=== PATIENT | female | born 1950 | race Caucasian/White ===

== ENCOUNTER 2017-12-19 14:03 | Outpatient (CLI) | payer MEDICARE, OTHER | END 2017-12-19 14:04 | disposition home or self-care (01) | LOC: BICRAD 14:03 | PROVIDERS: ATTEND Family Medicine | DX: M25.551 Pain in right hip (principal); M25.552 Pain in left hip ==

== ENCOUNTER 2018-05-05 23:41 | Inpatient (IN) | payer MEDICARE, OTHER ==
[~2018-05-05 23:41] MED LIST: ISOVUE-370 76%-LOCM 1 ML ONE
[2018-05-06 00:29] LABS: #Lymphocytes 0.4 thou/uL (1.20-3.40); #Monocytes 0.3 thou/uL (0.11-0.59); #Neutrophils 8.7 thou/uL (1.40-6.50); %Basophils 0.1 % (0.0-1.0); %Eosinophils 0.4 % (0.0-10.0); %Lymphocytes 3.8 % (21.0-51.0); %Monocytes 2.9 % (0.0-10.0); %Neutrophils 92.8 % (42.0-75.0); Hemoglobin 12.4 g/dL (12.0-16.0); Mean Corpuscular HGB CONC 33.3 g/dL (32.0-36.0); Mean Corpuscular Hemoglobin 30.6 pg (27.0-31.0); Mean Corpuscular Volume 91.7 fL (78.0-98.0); Platelet Count 368 thou/uL (130-400); RBC Distribution Width 11.8 % (11.5-14.5); Red Blood Cell (RBC) Count 4.06 mill/uL (4.20-5.40); White Blood Cell (WBC) Count 9.4 thou/uL (4.8-10.8)
[2018-05-06 00:51] LABS: ALT (SGPT) 46 U/L (8-55); AST (SGOT) 41 U/L (5-34); Albumin 3.9 g/dL (3.4-4.8); Alkaline Phosphatase 108 U/L (40-150); Anion Gap 13 mmol/L (10-20); BUN (Urea Nitrogen) 25 mg/dL (9.8-20.1); Bilirubin, Total 0.4 mg/dL (0.2-1.2); CK (CPK) 43 U/L (29-168); Calc. Creatinine Clearance 0 mL/min (70-130); Calcium 9.1 mg/dL (7.8-10.44); Carbon Dioxide 26 mmol/L (23-31); Chloride 101 mmol/L (98-107); Estimated GFR-MDRD 55; Glucose 144 mg/dL (80-115); Potassium 3.9 mmol/L (3.5-5.1); Protein, Total 6.9 g/dL (6.0-8.3); Sodium 136 mmol/L (136-145)
[2018-05-06 00:54] LABS: CKMB 0.7 ng/mL (0-6.6); Troponin I Less than 0.010 ng/mL (< 0.028)
[2018-05-06 01:30] LABS: Bilirubin Negative (Negative); Blood, Urine Negative (Negative); Clarity CLEAR (Clear); Glucose, Urine (Dipstick) Negative (Negative); Leukocyte Negative (Negative); Nitrite Negative (Negative); Protein, Urine (Dipstick) Negative (Neg-Trace); Urobilinogen 0.2 mg/dL (0.2-1.0)
[2018-05-06 01:34] LABS: Specific Gravity, Urine 1.059 (1.002-1.036)
[2018-05-06] MEDS ORDERED: Aspirin 325 MG TAB PO SCH (02:30)
[2018-05-06] MEDS ORDERED: Ondansetron HCl/PF 4 MG/2 ML Vial IVP PRN (02:36)
[2018-05-06] MEDS ORDERED: Ondansetron ODT 4 MG TAB SL PRN (02:36)
[2018-05-06] MEDS: Sodium Chloride 0.9% 1,000 ML IV SCH ×3 (02:40→20:10)
[2018-05-06 03:17] VITALS: BMI 26.6
[2018-05-06 03:51] LABS: Troponin I 0.015 ng/mL (< 0.028)
[2018-05-06] MEDS ORDERED: Acetaminophen 500 MG TAB PO PRN (04:17)
[2018-05-06] MEDS ORDERED: Acetaminophen 1,000 MG in Premix Bag 1 BAG IVPB SCH (04:30)
[2018-05-06 04:44] LABS: Lactic Acid 1.7 mmol/L (0.5-2.2)
[2018-05-06] MEDS: Promethazine HCl 12.5 MG in Sodium Chloride 0.9% 50 ML IVPB PRN ×2 (05:19→12:05)
[2018-05-06 07:06] LABS: Troponin I Less than 0.010 ng/mL (< 0.028)
[2018-05-06] MEDS ORDERED: Meloxicam 15 MG TAB PO PRN (08:20)
--- NOTE | 2018-05-06 08:50 | CT ---
PRELIMINARY REPORT/[facility]/EMERGENCY AFTER HOURS PROCEDURE: EXAM: CT Angiography Chest With Intravenous Contrast CLINICAL HISTORY: 68 years old, female; Pain; Chest pain; Patient HX: Patient presents for evaluation of chest pain TECHNIQUE: Axial computed tomographic angiography images of the chest with intravenous contrast using pulmonary embolism protocol. MIP reconstructed images were created and reviewed. COMPARISON: No relevant prior studies available. FINDINGS: Pulmonary arteries: Limited study due to motion, streak artifacts and suboptimal contrast opacificati on of the pulmonary arteries, however there is no definite evidence of pulmonary embolism to the segm ental level. Aorta: No acute findings. No thoracic aortic aneurysm or dissection. Lungs: Limited evaluation of the lung parenchyma due to motion. No mass. No consolidation. Dependent mild atelectasis. Few punctate nonspecific pulmonary nodules. Pleural space: No significant effusion. No pneumothorax. Heart: No significant cardiomegaly. No pericardial effusion. Mediastinum: Small hiatal hernia. Mildly distended esophagus. Bones/joints: No acute fracture. No dislocation. Soft tissues: No acute findings. Lymph nodes: No lymphadenopathy. Upper abdomen: Right renal cyst. IMPRESSION: No definite evidence of pulmonary embolism. Findings described above. Thank you for allowing us to participate in the care of your patient. Dictated and Authenticated by: Humble Dai MD 05/06/2018 1:15 AM Central Time ([place] & [place]) FINAL REPORT CT ANGIOGRAM THORAX WITH IV CONTRAST AND 3D RECONSTRUCTIONS: DATE: 05/06/18. IMPRESSION: 1. Suboptimal opacification of the pulmonary arteries due to timing of the contrast bolus, but no de finite filling defect is seen within the central or segmental pulmonary arteries to suggest a pulmona ry embolus. The subsegmental pulmonary arteries are not well visualized. 2. The thoracic aorta is normal in caliber without evidence of an aortic dissection. 3. Lungs are clear aside from dependent atelectasis. 4. Right renal cyst measuring 2.8 cm. 5. Cholecystectomy. 6. Small hiatal hernia. 7. Findings are in agreement with the preliminary report by [facility]. POS: [facility]
[2018-05-06] MEDS ORDERED: Prevnar 13-Val Conj/PF 0.5 ML SYRINGE IM ONE (09:00)
--- NOTE | 2018-05-06 09:25 | HP ---
CHIEF COMPLAINT: Dizziness and chest pain. HISTORY OF PRESENT ILLNESS: This patient is a 68-year-old female with a past medical history primari ly notable for some hypertension, who presented to the emergency department last evening. The patien sven reports that she was at [employer] last evening and started feeling a bit lightheaded and dizzy that te nded to progress after she got home, and she subsequently became nauseated. She had a family member bring her Zofran, which she tried. She subsequently reported that the nausea improved, but then she developed pain in the right side of her chest radiating downward. She had some development of pain a round her left eye and frontal area that radiated downward in her head and face area. With that she subsequently presented to the emergency department. She also reports that she was having significant rigors and some fever. In the emergency department, the patient's chest pain symptoms resolved. Narendra soliman reports that she is pain free now. She still has some left-sided headache and still has a bit of n ausea, although it is significantly improved. She did report that when she was having the most extre me dizziness that it was true vertigo and that it was occasionally better if she would be perfectly s till. Other times it did not seem to respond in the same way. The patient also reports that she kno ws she has been extremely stressed at home as her son and his family have been living with her is bec oming a stressful situation. REVIEW OF SYSTEMS: Ten-system review was negative except for those things mentioned in the history o f present illness. PAST MEDICAL HISTORY: Notable for hypertension, GERD, overactive bladder. The patient also reports that she did have a stress test performed around [id number] that was normal. She reports that she rem ains very physically active and is not limited by any cardiopulmonary symptoms when doing so. PAST SURGICAL HISTORY: BTL, cholecystectomy, hysterectomy, and oophorectomy. SOCIAL HISTORY: The patient is a . She is a nonsmoker, nondrinker, nondrug user. She is F[employer], and her 2 sons, Maxim and Noe, would be her surrogate decision makers should that become n ecessary. ALLERGIES: LISINOPRIL and PENICILLINS. PHYSICAL EXAMINATION: VITAL SIGNS: T-max 100.0, temperature 98.8; pulse 99; respirations 16; O2 sat 93%; blood pressure 82 /52 up to 123/62. GENERAL APPEARANCE: Age-appropriate female. She is in no distress. She is awake, alert, oriented, pleasant, and cooperative. HEENT: Pupils are reactive to light and accommodation. She has no OP lesions. No facial lesions. NECK: Supple and symmetric without lymphadenopathy, JVD, or carotid bruits. HEART: Regular rate and rhythm without murmurs, gallops, or rubs. LUNGS: Clear to auscultation bilaterally with good chest wall expansion and air exchange. ABDOMEN: Soft, nontender, nondistended. Positive bowel sounds. EXTREMITIES: Warm and dry with no edema. NEUROLOGICAL: The patient is appropriate. She has spontaneous movement in all extremities with no e vidence of defects. LABORATORY DATA: White count 9.4, hemoglobin 12.4, platelets 368. Sodium 136, potassium 3.9, chlori de 101, CO2 of 26, BUN 25, creatinine is 1.0, glucose 144. Lactic acid 2.5, calcium 9.1, AST 41, ALT 46. Troponin less than 0.01, subsequent 0.015, and that the third is less than 0.01. BNP less than 10. Albumin 3.9. Urinalysis negative other than elevated specific gravity. EKG initially showed s ome sinus tachycardia. Chest x-ray and CT angio of the chest were both negative. IMPRESSION AND PLAN: 1. Chest pain. This patient's chest pain has resolved. It sounds very atypical. She has had 3 neg ative troponins and normal telemetry. In the setting of the vertigo and the fever, I suspect this is noncardiac in nature and do not anticipate any further aggressive workup from that perspective. 2. Vertigo. Patient's symptoms appear to be consistent with a benign paroxysmal vertigo, although a gain in the setting of the fever makes it somewhat questionable, although it could be viral in nature . 3. Febrile illness. The patient appears to be possibly suffering from some type of a viral illness. We will check a flu screen and continue to monitor today. 4. Hypotension. We will hold the patient's blood pressure medication for now. We will also check o rthostatic vital signs. DISPOSITION: We will continue to monitor the patient today, get her up and around and see how she fe els. If this appears to be more consistent with a viral illness, may consider discharge for outpatie nt followup.
[2018-05-06] MEDS: TROSPIUM 20 MG TABLET PO SCH ×2 (09:31→20:09)
--- NOTE | 2018-05-06 09:47 | RAD ---
PORTABLE AP CHEST: Date: 05/05/18 HISTORY: Chest pain. COMPARISON: 12/05/07. FINDINGS: Cardiac silhouette and pulmonary vasculature within normal limits. Lungs are clear. Osseous structure s are intact. IMPRESSION: No acute cardiopulmonary process. POS: [facility]
--- NOTE | 2018-05-06 11:24 | CT ---
CT OF SINUSES PERFORMED WITHOUT CONTRAST ENHANCEMENT: Date: 05/06/18 HISTORY: Vertigo, fever, headache, and sinus congestion. FINDINGS: The frontal sinuses are clear. Frontal recess regions appear fairly unremarkable. There is a jailene b ullosa type deformity of the right middle turbinate with partial aeration of the vertical segment and bulbous portion of the right middle turbinate, somewhat hypertrophied. There is some slight left-ally ed nasal septal deviation associated with this. Uncinate processes do not appear significantly elonga je. There is some minimal mucosal change near the left maxillary ostium. The maxillary sinuses are c lear. There is a small accessory right maxillary ostium incidentally noted. The posterior ethmoid air cells, sphenoid sinus, and sphenoethmoid recess regions are clear. IMPRESSION: 1. No evidence of any mucosal change of the sinuses. 2. Slight left-sided nasal septal deviation associated with a somewhat hypertrophied right middle tu rbinate as discussed above. Slight narrowing to the right and left ostiomeatal complexes and an acces barrett maxillary ostium on the right. POS: [facility]
[2018-05-06 13:58] LABS: #Lymphocytes 0.7 thou/uL (1.20-3.40); #Monocytes 0.3 thou/uL (0.11-0.59); #Neutrophils 4.3 thou/uL (1.40-6.50); %Basophils 0.1 % (0.0-1.0); %Eosinophils 0.5 % (0.0-10.0); %Lymphocytes 12.4 % (21.0-51.0); %Monocytes 6.5 % (0.0-10.0); %Neutrophils 80.5 % (42.0-75.0); Hemoglobin 10.6 g/dL (12.0-16.0); Mean Corpuscular Hemoglobin 30.9 pg (27.0-31.0); Mean Corpuscular Volume 93.5 fL (78.0-98.0); Mean Platelet Volume 7.1 fL (7.4-10.4); Platelet Count 301 thou/uL (130-400); RBC Distribution Width 12.1 % (11.5-14.5); Red Blood Cell (RBC) Count 3.44 mill/uL (4.20-5.40); White Blood Cell (WBC) Count 5.3 thou/uL (4.8-10.8)
[2018-05-06 14:21] LABS: ALT (SGPT) 56 U/L (8-55); AST (SGOT) 57 U/L (5-34); Albumin 3.2 g/dL (3.4-4.8); Alkaline Phosphatase 90 U/L (40-150); Anion Gap 13 mmol/L (10-20); BUN (Urea Nitrogen) 21 mg/dL (9.8-20.1); Bilirubin, Total 0.3 mg/dL (0.2-1.2); Calc. Creatinine Clearance 58 mL/min (70-130); Calcium 7.8 mg/dL (7.8-10.44); Carbon Dioxide 22 mmol/L (23-31); Chloride 109 mmol/L (98-107); Estimated GFR-MDRD 60; Globulin 2.7 g/dL (2.4-3.5); Glucose 104 mg/dL (80-115); Potassium 3.6 mmol/L (3.5-5.1); Protein, Total 5.9 g/dL (6.0-8.3); Sodium 140 mmol/L (136-145)
--- NOTE | 2018-05-06 15:49 | PDOC.EVN ---
Event Note - Event Note Event Note: Still feeling a little nausea. BP typically runs high. Has been low her with systolic in the 80's with orthostatics. Repeat labs notable for decreasing WBC and minimally elevated LFT's. Suspect viral syndrome, but hypotensive. Will make inpatient. Can transfer to floor without tele. Recheck one troponin, although suspect it is low likelihood. Continue IVF with NS at 125.
[2018-05-07] MEDS: Sodium Chloride 0.9% 1,000 ML IV SCH ×2 (01:34→04:22)
[2018-05-07 06:46] LABS: Anion Gap 10 mmol/L (10-20); BUN (Urea Nitrogen) 12 mg/dL (9.8-20.1); Calc. Creatinine Clearance 70 mL/min (70-130); Calcium 7.6 mg/dL (7.8-10.44); Carbon Dioxide 24 mmol/L (23-31); Chloride 111 mmol/L (98-107); Estimated GFR-MDRD 72; Glucose 95 mg/dL (80-115); Potassium 3.6 mmol/L (3.5-5.1); Sodium 141 mmol/L (136-145)
[2018-05-07 08:07] LABS: Hemoglobin 9.7 g/dL (12.0-16.0); Mean Corpuscular HGB CONC 32.3 g/dL (32.0-36.0); Mean Corpuscular Hemoglobin 30.6 pg (27.0-31.0); Mean Corpuscular Volume 94.7 fL (78.0-98.0); Mean Platelet Volume 7.5 fL (7.4-10.4); Platelet Count 282 thou/uL (130-400); RBC Distribution Width 12.2 % (11.5-14.5); Red Blood Cell (RBC) Count 3.16 mill/uL (4.20-5.40); White Blood Cell (WBC) Count 3.8 thou/uL (4.8-10.8)
[2018-05-07] MEDS: TROSPIUM 20 MG TABLET PO SCH (08:54)
[2018-05-07 09:32] LABS: Band 11 % (5-11); Lymphocytes 32 % (21-51); MDiff Complete? YES; Monocytes 6 % (0-10); Neutrophil 50 % (42-75); PLT Morphology Comment Appears Adequate; Polychromasia SLIGHT = 2-3 cells (100X) (0-2/hpf)
[2018-05-07 11:50] VITALS: BP 117/57; TEMP 98.6
--- NOTE | 2018-05-08 01:25 | DIS ---
DATE OF ADMISSION: 05/06/2018 DATE OF DISCHARGE: 05/07/2018 DISCHARGE DIAGNOSES: 1. Viral syndrome. 2. Chest pain. 3. Vertigo. 4. Fever. 5. Hypotension. HISTORY: Patient is a 68-year-old female who presented via the emergency department. Patient report ed that she initially had the onset of some vertigo and lightheadedness. She subsequently developed some nausea and took family members Zofran that helped her nausea, but she subsequently developed sandoval e pain in her right anterior chest radiating downward and around her left eye. She had some type of headache associated with that. With that, the patient presented to the emergency department where sh e had no significant findings on EKG. White count was 9.4. Chemistries were notable for sodium of 1 36, potassium 3.9, BUN 25, creatinine 1.0, glucose was 144. AST 41, ALT 46, lactic acid 2.5, troponi n less than 0.01. Repeat troponin was 0.015 and lactic acid was 1.7. HOSPITAL COURSE: Patient was admitted to the hospital. She had telemetry, which was unremarkable. She had repeat troponin, which was negative. She did have some notation of some hypotension with sys tolic blood pressures in 80s. She was aggressively hydrated and with a slight bump in her BUN felt l samantha she was likely dehydrated. She was noted to have a temperature of 100.0 max and her repeat CBC s howed white count dropped to 5.3, was felt that the patient likely was having some dilutional effect and also may this was consistent with viral syndrome. Given the hypotension, she was converted from observation to inpatient. She continued to receive hydration through the night. By the following da y, her symptoms had abated. She no longer had any nausea or lightheadedness. White count had droppe d down to 3.8 and she remained afebrile for 24 hours. At that point, I felt strongly that the patien t had suffered from a viral syndrome, which was improving and patient was stable for discharged to [facility]. PHYSICAL EXAMINATION: VITAL SIGNS: On the day of discharge, temperature 98.6, pulse 76, respirations 16, O2 sat 95% on adan m air, BP 117/57. GENERAL: The patient was awake, alert, oriented, pleasant, cooperative. HEART: Regular rate and rhythm. LUNGS: Clear. She did have a little puffiness in her hands, otherwise benign. DISPOSITION: Patient is discharged to home. She is to have only modest activity today. She will co ntinue with her usual home medications and have no new medications prescribed. She is encouraged to follow up with Dr. Palmer in next week. She should return to the emergency department should she have any problems prior to that time.
== END 2018-05-07 13:15 | disposition home or self-care (01) | DRG 866 ==
LOC: ERS 23:41 → 2SW 05-06 01:00 → OBSVTOIN 05-06 15:45
PROVIDERS: ADMIT Hospitalist; ATTEND Hospitalist
DX: B34.9 Viral infection, unspecified (principal); R42 Dizziness and giddiness; R50.9 Fever, unspecified; I95.9 Hypotension, unspecified; R51 Headache; E86.0 Dehydration; I10 Essential (primary) hypertension; K21.9 Gastro-esophageal reflux disease without esophagitis; N32.81 Overactive bladder; Z90.49 Acquired absence of other specified parts of digestive tract; Z90.710 Acquired absence of both cervix and uterus; Z88.0 Allergy status to penicillin; Z88.8 Allergy status to other drugs, medicaments and biological substances
CPT/HCPCS: 36415; 71045; 71275; 80048; 80053; 81003; 82550; 82553; 83605; 83880; 84484; 85025; 87040; 87086; 87804; 90471; 90670; 93005; 96360; G0009; J0131; J2405; J2550; J7050

== ENCOUNTER 2018-06-03 08:56 | Outpatient (CLI) | payer MEDICARE, OTHER | END 2018-06-03 08:57 | disposition home or self-care (01) | LOC: BICMAMMO 08:56 | PROVIDERS: ATTEND Obstetrics & Gynecology | DX: Z12.31 Encounter for screening mammogram for malignant neoplasm of breast (principal) | CPT/HCPCS: 77063; 77067 ==

== ENCOUNTER 2021-07-27 09:27 | Outpatient (CLI) | payer OTHER | END 2021-07-27 09:28 | disposition home or self-care (01) | LOC: DTY/OP 09:27 | PROVIDERS: ATTEND Family Medicine | DX: I10 Essential (primary) hypertension (principal) | CPT/HCPCS: 97802 ==

== ENCOUNTER 2022-01-06 12:33 | Outpatient (CLI) | payer MEDICARE | END 2022-01-06 12:34 | disposition home or self-care (01) | LOC: ULT 12:33 | PROVIDERS: ATTEND Internal Medicine Cardiovascular Disease | DX: E04.2 Nontoxic multinodular goiter (principal) | CPT/HCPCS: 76536 ==